=== PATIENT | male | born 1935 | race Caucasian/White ===

== ENCOUNTER 2016-04-18 23:21 | Observation (INO) | payer OTHER, MEDICARE ==
[2016-04-18] MEDS ORDERED: NS 500 ML IV ONE (23:24)
[2016-04-18 23:47] LABS: % IMMATURE GRANULYOCYTES 0.4 % (0.0-1.1); ABSOLUTE IMMATURE GRANULOCYTES 0.02 10^3/uL (0.00-0.10); ADD DIFF? NO; ADD MORPH? NO; ADD SCAN? NO; ATYPICAL LYMPHOCYTE FLAG 20 (0-99); FRAGMENT RBC FLAG 0 (0-99); HEMATOCRIT 43.7 % (40.0-51.0); HEMOGLOBIN 15.1 g/dL (13.7-17.5); LEFT SHIFT FLG 10 (0-99); LIPEMIA HEMOLYSIS FLAG 90 (0-99); MEAN CELL HEMOGLOBIN 32.5 pg (27.9-34.1); MEAN CELL HEMOGLOBIN CONCENTR. 34.6 g/dL (32.4-36.7); MEAN PLATELET VOLUME 10.7 fL (8.7-11.7); PLATELET CLUMPS FLAG 0 (0-99); PLATELET COUNT 171 10^3/uL (150-400); RED BLOOD CELL COUNT 4.65 10^6/uL (4.40-6.38); RED CELL DISTRIBUTION WIDTH 13.8 % (11.5-15.2)
--- NOTE | 2016-04-18 23:48 | DX ---
Portable Chest History: Chest pain in a 80-year-old male; comparison prior study October 16, 2013.. Findings: The heart size and pulmonary vascularity are normal allowing for portable technique. Aortic tortuosity is seen unchanged.. Pulmonary vascularity is normal. The lungs are clear. There is no ple ural fluid. A pneumothorax is not identified. Impression: Chest negative for acute abnormality.
--- NOTE | 2016-04-18 23:56 | CPEKG ---
Heart Rate: 72 RR Interval: 833 P-R Interval: 168 QRSD Interval: 98 QT Interval: 384 QTC Interval: 421 P [place]: 41 QRS [place]: 8 T Wave [place]: 33 EKG Severity - NORMAL ECG - EKG Impression: SINUS RHYTHM Electronically Signed By: Stefan Marin 19-Apr-2016 01:03:41
[2016-04-19 00:19] LABS: ANION GAP 12 mEq/L (8-16); CALCIUM 8.8 mg/dL (8.5-10.4); CARBON DIOXIDE 25 mEq/l (22-31); CHLORIDE 99 mEq/L (97-110); CREATININE 0.9 mg/dL (0.7-1.3); GLOMERULAR FILTRATION RATE > 60; GLUCOSE 165 mg/dL (70-100); POTASSIUM 4.1 mEq/L (3.5-5.2); SODIUM 136 mEq/L (134-144)
[2016-04-19 00:27] LABS: TROPONIN I < 0.012 ng/mL (0-0.034)
--- NOTE | 2016-04-19 00:36 | EDPHY ---
H & P Time Seen by Provider: 04/18/16 23:25 HPI/ROS: HPI Fainted x3 today. 80-year-old male by ambulance from home. Patient has a history of vasovagal syncope syndrome. He wears a implanted cardiac cath lab manager. He is currently being managed by Dr. Ward. He has not had an episode of syncope in a year. He was recently put on lisinopril for hypertension by his primary care physician 2- 4 weeks ago. He has been on fludrocortisone for his vasovagal syncope. He denies any associated chest pain, shortness of breath, headache, loss of sensation or weakness in his extremities. No palpitations. He had an episode at 10:00 a.m. after he was brushing his teeth while sitting on the bath tub and then standing up. He then had another episode at about 3:00 p.m. when he got up after sitting for a period of time near his living room he did not fully lose consciousness at that time. And the 3rd episode was at about 10:00 p.m. while straining to have a bowel movement. His called the office of [facility]. They apparently recorded a brief episode of bradycardia from the mid afternoon event at 3:00 p.m.. ROS: Constitutional: No fever, no chills. As above per Eyes: No discharge. No changes in vision. ENT: No sore throat. No nasal congestion or rhinorrhea. Respiratory: No cough. No shortness of breath. Cardiac: No chest pain, no palpitations. Gastrointestinal: No abdominal pain, no vomiting, no diarrhea. Genitourinary: No hematuria. No dysuria or increased frequency with urination. Musculoskeletal: No back pain. No neck pain. No myalgias or arthralgias. Skin: No rashes. Neurological: No headache. No focal weakness or altered sensation. Past medical history: Hypothyroidism, hypertension, hyperlipidemia, right wrist surgery, tonsillectomy. Social history: Here with family. Nonsmoker. Denies alcohol. Physical Exam: General Appearance: Alert, no distress. This patient is responding to questions appropriately and in full sentences. This patient appears well- hydrated and well-nourished. Eyes: Pupils equal and round no pallor or injection. No lid edema, erythema or injection. Respiratory: There are no retractions, lungs are clear to auscultation with good air movement bilaterally. Implantable cardiac rhythm monitor left upper chest wall. Cardiovascular: Regular rate and rhythm. No murmur. Gastrointestinal: Abdomen is soft and nontender, no masses, bowel sounds normal. No focal tenderness at McBurney's point. No Guzmán sign. Neurological: Motor sensory function is grossly intact. Cranial nerves are normal. Cerebellar function is normal. Skin: Warm and dry, no rashes. Musculoskeletal: Neck is supple and nontender. Extremities are symmetrical. All joints range without pain or impingement. Psychiatric: No agitation. No depression. Database: EKG: EKG time is 11:54 p.m.; EKG shows a narrow complex normal sinus rhythm with a ventricular rate of 72. The SD, QRS, QT intervals are within normal limits. There are no ST-T wave changes indicative of ischemic or injury pattern. No evidence of right heart strain. No evidence of Brugada syndrome, WPW, hypertrophic cardiomyopathy. Interpreted by me. Imaging: Chest x-ray AP portal; the cardiac mediastinal silhouette is unremarkable. No evidence of infiltrate or pneumothorax. No acute cardiopulmonary disease process noted. Interpreted by me. Procedures: Emergency department course: IV placed. He was placed on a cardiac cath lab manager. EKG performed. He was started on IV normal saline with 500 cc to be given over the next hour. 12:45 a.m., patient re-evaluated. Resting comfortably at this time. Vital signs reviewed and are normal except for moderate hypertension. Results of diagnostic test discussed with him and family. Plan for admission reviewed. All of their questions were answered. 12:50 a.m., spoke with on-call hospitalist Dr. Mccauley. Case discussed in detail. Patient accepted for admission to the hospitalist service. Patient admitted in stable condition to the hospitalist service. Differential Diagnosis: The differential diagnosis on this patient includes but is not limited to vasovagal syncope, bradycardia,,. This represents a partial list of diagnoses considered. These considerations are based on history, physical exam, past history, reassessment and diagnostic testing. Smoking Status: Former smoker Constitutional: Initial Vital Signs Temperature (C) 36.8 C 04/19/16 00:21 Heart Rate 75 04/19/16 00:21 Respiratory Rate 16 04/19/16 00:21 Blood Pressure 163/90 H 04/19/16 00:21 O2 Sat (%) 95 04/19/16 00:21 O2 Delivery Mode Room Air Allergies/Adverse Reactions: No Known Allergies Allergy (Verified 04/19/16 00:10) Home Medications: Medication Instructions Recorded Aspirin [Aspirin 81mg (*)] 81 mg PO HS 10/15/13 Levothyroxine [Synthroid 75 mcg 75 mcg PO DAILY06 10/15/13 (*)] Lovastatin 20 mg PO DAILY18 10/15/13 Multivitamins [Multivitamin (*)] 1 each PO DAILY 10/16/13 Fludrocortisone Acetate [Florinef 0.1 mg PO DAILY@10 04/19/16 0.1 MG (RX)] Lisinopril/Hctz 10/12.5 mg 1 ea PO DAILY06 04/19/16 [Zestoretic/Prinzide 10/12.5MG (*)] Medical Decision Making - Data Points Laboratory Results: Laboratory Results 04/18/16 23:30 04/18/16 23:30 04/18/16 23:30 TSH 3.390 uIU/mL (0.465-4.680) Medications Given: Discontinued Medications Sodium Chloride (Ns) 500 mls @ 0 mls/hr IV ONCE ONE PRN Reason: As Directed Stop: 04/18/16 23:25 Last Admin: 04/18/16 23:30 Dose: 500 mls Departure - Departure Disposition: [facility] Inpatient Acute Clinical Impression: Syncope
[2016-04-19] MEDS ORDERED: ONDANSETRON DISINTEGRATING 4 MG TAB PO PRN (01:38)
[2016-04-19] MEDS ORDERED: ONDANSETRON 4 MG/2 ML VIAL IVP PRN (01:38)
[2016-04-19] MEDS: NS 1,000 ML IV SCH ×2 (02:43→16:15)
--- NOTE | 2016-04-19 02:45 | GHP ---
[f rep st] HISTORY AND PHYSICAL DATE OF ADMISSION: 04/19/2016 CHIEF COMPLAINT: Syncope. HISTORY OF PRESENT ILLNESS: This is a 80-year-old male with a history of vasovagal syncope syndrome. He has had many episodes of vasovagal syncope. He did have an EP procedure last year to rule out S VT and that did not seem to be the issue. He actually has not had a syncopal episode since the night after that procedure. He and his have had a respiratory type illness the last couple days. To day, he had a fever up to 101. He has been coughing a significant amount without any sputum producti on. This morning, he did not look good in the bathroom and had a syncopal episode at that time. He had a syncopal episode in the bathroom after brushing his teeth. He had 2 more syncopal episodes, th e last 1 with having a bowel movement. He does remain weak after these episodes. They do not last v maximilian long. He denies any chest pain. No palpitations. He does admit to fever. He has had a dry cou gh with no sputum. No sore throat. Apparently, he does have a Linq and 1 of the rhythms was transmi tted to [facility] and there appeared to be a brief episode of bradycardia at that time. The matias ent was recently started on lisinopril for hypertension a few weeks ago. REVIEW OF SYSTEMS: A 10-point review of systems was obtained and negative. PAST MEDICAL HISTORY: 1. Vasovagal syndrome as above. 2. Hypothyroidism. 3. Hypertension. 4. Hyperlipidemia. 5. Right wrist surgery. 6. Tonsillectomy. SOCIAL HISTORY: No smoking or alcohol. FAMILY HISTORY: No family history of similar complaints. PHYSICAL EXAM: VITAL SIGNS: Afebrile, blood pressure is 163/90, heart rate 75, oxygen saturation 95 % on room air. He does not have any orthostasis. GENERAL: Patient is in no apparent distress. ZAC NT: Nonicteric sclerae. Extraocular movements intact. Moist mucous membranes. NECK: Supple. No thyromegaly. LUNGS: Good effort. Clear to auscultation bilaterally. CARDIOVASCULAR: Regular rate and rhythm. No murmurs, gallops. ABDOMEN: Positive bowel sounds. Soft, nontender, nondistended. No hepatosplenomegaly. EXTREMITIES: No clubbing, cyanosis, or edema. SKIN: Without rash. Dry, i ntact. NEUROLOGIC: Alert and oriented x3. Moving all 4 extremities equally. PSYCH: Normal mood a nd affect. LABS: CBC is normal. Chemistry is also normal. Blood sugar is a little bit elevated at 165. EKG p ersonally reviewed and interpreted shows normal sinus rhythm with no ischemic changes. Chest x-ray personally reviewed and interpreted, shows no pneumonia. ASSESSMENT: This is a 80-year-old male with a history of vasovagal syncope, presenting with several episodes of syncope most consistent with vasovagal. PLAN: 1. Vasovagal syncope. We will continue to monitor overnight. Will have Cardiology see the patient as they have been managing this. I do wonder if a pacemaker might be able to help with these episode s, although he only seems to only get them on a yearly basis. 2. Fever. This is most likely due to a viral syndrome. Will check flu swab. I am going to hold of f on any antibiotics. 3. History of hypertension with a recent addition of lisinopril. This may be contributing as he is also on Florinef to raise his blood pressure. We will hold his medication. /[id number]/MODL
[2016-04-19] MEDS: ACETAMINOPHEN 325 MG TAB PO PRN ×2 (08:23→17:46)
[2016-04-19] MEDS: OSELTAMIVIR PHOSPHATE 75 MG CAP PO SCH ×2 (09:14→17:21)
--- NOTE | 2016-04-19 12:49 | HOSPPROG ---
Hospitalist Progress Note Assessment/Plan: # acute influenza A- febrile on admission - starting Tamiflu # acute episodes of syncope- known diagnosis of vasovagal syncope- started on Florinef by Dr. Pr[facility] just recently started on blood pressure medication by his PCP - cardiology to leave recommendations related to syncope and above medications - continue fluid resuscitation - continue telemetry monitoring Objective: Vital Signs Temp Pulse Resp BP Pulse Ox 36.9 C 66 20 149/86 H 91 L 04/19/16 11:24 04/19/16 11:24 04/19/16 11:24 04/19/16 11:24 04/19/16 11:24 04/18/16 04/19/16 04/20/16 05:59 05:59 05:59 Intake Total 1200 240 Balance 1200 240 ICD10 Worksheet Patient Problems: Problems Problem Status Diagnosed Syncope Acute Fever Acute
--- NOTE | 2016-04-19 13:32 | GCON ---
[f rep st] CONSULTATION REFERRING PHYSICIAN: Zach Mccauley MD HISTORY OF PRESENT ILLNESS: This a 80-year-old patient with past medical history of vasovagal syncope, who was diagnosed a few months back with hypertension and was placed on lisinopril. He comes in for evaluation of syncope. The patient mentions that starting Saturday he has been having a significant amount of cough and fever, and has had decreased appetite. He has been lying in bed all day and all night long and has not been eating and drinking well. At 10 o'clock in the morning, he decided to get up out of bed and brush his teeth. He got out of bed, walked over to the bathroom, and was sitting brushing his teeth when his saw him, and he was "not looking good at all." After that, the patient stood up from that position and passed out. As soon as he passed out, his ran out and pressed the button to the LINQ monitor, forcing it to make a recording. He lay on the ground for quite a few minutes, and was not making contact or making much coherent conversation. After this, the patient had another episode at 3 p.m., and 1 more episode at night, then he passed out again. At that point in time, his pressed the LINQ monitor button again. All through the day, he had not been eating and drinking well, and had been lying in bed. I have interrogated/evaluated each of these episodes when she pressed the button, and the minimal heart rate it went to was 45 beats a minute, which was with an episode at 11 a.m. in the morning. With the evening episode at 11 p.m., he did not have any drop in the heart rate below 55 beats per minute. In the past, we have evaluated the patient extensively for his syncopal episode , and we made the diagnosis of vasovagal syncope, and he was given Florinef. He had LINQ monitor for about a year and no episodes of symptomatic or asymptomatic bradyarrhythmia have been noted in the past. REVIEW OF SYSTEMS: Other than above, are negative. PAST MEDICAL HISTORY: 1. Vasovagal syncope, on Florinef. Each of the episodes have occurred under some unusual circumstances or positional change. 2. Hypothyroidism. 3. Hypertension. 4. Hyperlipidemia. 5. Right wrist surgery. 6. Tonsillectomy. SOCIAL HISTORY: Nonsmoker, no alcohol use. FAMILY HISTORY: No family history of sudden cardiac . PHYSICAL EXAMINATION: VITAL SIGNS: Blood pressure at the time of admission 163 /90, and during my exam 149/86, pulse of 107, respiratory rate 16. GENERAL: Patient is coughing occasionally. The patient appears to be in no apparent distress. HEENT: Anicteric sclerae. Extraocular movements intact. Mucous membranes are moist. NECK: Supple. No thyromegaly. LUNGS: Good effort, bilaterally equal strength. No rales, rhonchi or rub. CARDIAC: S1, S2 regular. No S3, no murmurs. ABDOMEN: Soft, nontender. No guarding or rigidity. Bowel sounds present. EXTREMITIES: No edema, no clubbing, no cyanosis. SKIN: Without rash. Dry and intact. NEUROLOGIC: Intact. PSYCH: Normal mood and affect. LABORATORY DATA: CBC is normal. Chem-7 is normal. He is positive for influenza A. IMPRESSION AND PLAN: 1. This is a 80-year-old patient with vasovagal syncope, who has 2 episodes recorded on LINQ monitor with syncope. One of them shows no evidence of bradycardia, and the other shows bradycardia up to 45 beats per minute. I have discussed the situation extensively with the patient and his , and have mentioned that the pacemaker may improve the chances of him not having syncope by 10% to 20%. However, most of this appears to be related to a drop in the blood pressure, when there is a combination of dehydration, positional change, with history of vasovagal syncope. Based on the literature on vasovagal syncope , pacemaker will not help; however, if these episodes continue to occur without him having fever or dehydration, then it may be worth putting in a pacemaker. However, this may be a long-term solution rather than something needed during this admission. At the current point in time, considering his hypertension, we will stop the Florinef. 2. Fever. This is likely due to H. influenzae. 3. Hypertension. This probably needs to be aggressively treated. 4. Continue to hydrate the patient since he still continues to have poor appetite. Thank you for letting us participate in the patient's care. Feel free to call us for questions. /[id number]/MODL MTDD
[2016-04-19] MEDS ORDERED: NON-FORMULARY NEW DRUG (Lovastatin [Lovastatin] 20 MG) PO SCH (18:00)
[2016-04-19] MEDS ORDERED: PRAVASTATIN SODIUM 20 MG TAB PO SCH (18:00)
[2016-04-19] MEDS ORDERED: ASPIRIN 81 MG CHEWABLE TAB PO SCH (21:00)
[2016-04-20 04:41] VITALS: PULSE 68
[2016-04-20 05:15] LABS: HEMATOCRIT 39.3 % (40.0-51.0); HEMOGLOBIN 13.7 g/dL (13.7-17.5); MEAN CELL HEMOGLOBIN 32.7 pg (27.9-34.1); MEAN CELL HEMOGLOBIN CONCENTR. 34.9 g/dL (32.4-36.7); MEAN CELL VOLUME 93.8 fL (81.5-99.8); RED BLOOD CELL COUNT 4.19 10^6/uL (4.40-6.38); RED CELL DISTRIBUTION WIDTH 13.7 % (11.5-15.2)
[2016-04-20 05:45] LABS: ANION GAP 6 mEq/L (8-16); CALCIUM 7.8 mg/dL (8.5-10.4); CARBON DIOXIDE 24 mEq/l (22-31); CHLORIDE 108 mEq/L (97-110); CREATININE 0.8 mg/dL (0.7-1.3); GLOMERULAR FILTRATION RATE > 60; GLUCOSE 93 mg/dL (70-100); POTASSIUM 3.5 mEq/L (3.5-5.2); SODIUM 138 mEq/L (134-144)
[2016-04-20] MEDS ORDERED: LEVOTHYROXINE 75 MCG TAB PO SCH (06:00)
[2016-04-20 08:58] VITALS: BP 125/73; RESP 19; TEMP 98; O2SAT 94
[2016-04-20] MEDS ORDERED: MULTIVITAMINS 1 EACH TAB PO SCH (09:00)
[2016-04-20] MEDS: OSELTAMIVIR PHOSPHATE 75 MG CAP PO SCH (09:21)
--- NOTE | 2016-04-20 22:23 | GDS ---
[f rep st] DISCHARGE SUMMARY DISCHARGE DIAGNOSES: Include: 1. Acute influenza A. 2. Acute syncope thought secondary to fever and dehydration. 3. Chronic known vasovagal syncope. 4. Hypothyroidism. 5. Recent diagnosis of hypertension. 6. Hyperlipidemia. HISTORY OF PRESENT ILLNESS: A 80-year-old male with a history of well-documented vasovagal syncope, treated with Florinef by Cardiology in the outpatient setting, who presents with multiple episodes of syncope. For details of patient's initial presentation, please see the History and Physical dated 0 04/19/2016. CONSULTATIVE SERVICES: Cardiology, Dr. Rader. PROCEDURES: None. HOSPITAL COURSE: By issue: 1. Acute syncope. The patient had his recorder reviewed by Dr. Rader, his order desk caller, who felt the re was 1 episode where there was significant bradycardia, another episode where there were no dysrhyt hmias or heart rate abnormalities. The greatest assumption is that the patient's syncope was more re lated to fever and dehydration with his acute influenza A diagnosis. The patient is being taken off his Florinef, as his blood pressures have not run low during this hospital stay. He is to follow in the outpatient setting with Dr. Rader, as well as his primary care provider. 2. Acute influenza A. Patient had had symptoms for only a day or so prior to presentation. He was initiated on Tamiflu, provided IV fluid resuscitation and supportive care, [facility] 10-[facility] course of Tamiflu in the outpatient setting. 3. Hypertension. Per the patient's report, this is a new diagnosis since the initiation of Florinef . Previous, patient had quite low blood pressures. He was initiated on blood pressure medication by his outpatient PCP at his physical 02/2016. It was our determination that the patient actually off Florinef will likely not have elevations in his blood pressure. We are discontinuing both the Maud ef per Cardiology for his vasovagal syncope, as well as his outpatient antihypertensive. We have ask ed that he check his blood pressures in the outpatient setting and present to his primary care next w [place] for further discussions about his blood pressure and need for ongoing antihypertensive treatment, which we suspect is low. MEDICATIONS: At the time of disposition, please reference medication reconciliation printed on 04/20. FOLLOWUP APPOINTMENTS: Include with his PCP next week for a blood pressure check. PENDING STUDIES: At the time of this dictation are none. I spent greater than 30 minutes on the planning and coordination of this discharge. /[id number]/MODL
== END 2016-04-20 13:10 | disposition home or self-care (01) ==
LOC: EDUNIT# → F2W 04-19 01:59
PROVIDERS: ADMIT Internal Medicine; ATTEND Hospitalist
DX: J11.1 Influenza due to unidentified influenza virus with other respiratory manifestations (principal); R55 Syncope and collapse; I10 Essential (primary) hypertension; E03.9 Hypothyroidism, unspecified; E78.5 Hyperlipidemia, unspecified
CPT/HCPCS: 71010; 93005; 96360; 99285; G0378

== ENCOUNTER → 2016-05-11 | Outpatient (CLI) | payer OTHER, MEDICARE | LOC: BHFA 15:30 | PROVIDERS: ATTEND Internal Medicine Cardiovascular Disease | DX: I47.1 Supraventricular tachycardia (principal) ==

== ENCOUNTER → 2016-08-10 | Outpatient (CLI) | payer OTHER, MEDICARE | LOC: BHFA 11:00 | PROVIDERS: ATTEND Internal Medicine Cardiovascular Disease | DX: I47.1 Supraventricular tachycardia (principal) ==

== ENCOUNTER → 2016-09-21 | Outpatient (CLI) | payer OTHER, MEDICARE | LOC: BHFA 11:30 | PROVIDERS: ATTEND Internal Medicine Cardiovascular Disease | DX: I47.1 Supraventricular tachycardia (principal) ==

== ENCOUNTER 2016-10-16 12:14 | Observation (INO) | payer OTHER, MEDICARE ==
[2016-10-16] MEDS ORDERED: NS 1,000 ML IV ONE ×2 (12:24→16:38)
--- NOTE | 2016-10-16 12:36 | EDPHY ---
H & P Time Seen by Provider: 10/16/16 12:34 HPI/ROS: CHIEF COMPLAINT: Syncope HISTORY OF PRESENT ILLNESS: Patient is recurrent history of syncope and actually has an implanted monitor from [employer]. He arrives by EMS after having an episode of passing out on the toilet. According to the patient and confirmed by his his some lower abdominal discomfort and went to the bathroom and proceeded to have syncope on the toilet. Afterwards he had multiple episodes of vomiting and some loose stool and was brought in by paramedics. Currently says he feels much better and back to normal. This is almost identical to his previous episodes of syncope. REVIEW OF SYSTEMS: Eye: no change in vision ENT: no sore throat Cardiac: Denies chest pain Pulmonary: no cough or SOB Abdomen: No abdominal pain now. Musculoskeletal: no back pain or neck pain or extremity injury. Skin: no rash, no laceration or abrasion from the fall Neuro: no headache Constitutional: no fever : no urinary symptoms A comprehensive 10 point review of systems is otherwise negative aside from elements mentioned in the history of present illness. PAST MEDICAL HISTORY: Tonsillectomy, right wrist surgery, thyroid, elevated cholesterol, syncope as in HPI. Social history: Here with his and family General Appearance: Alert and conversant, cooperative. Eyes: No scleral icterus. Extraocular motion intact. ENT, Mouth: Normal mucous membranes. No tongue laceration or abrasion. No external evidence of head trauma. Respiratory: Normal respiratory effort, breath sounds equal, lungs are clear to auscultation. Cardiovascular: Regular rate and rhythm. No murmur. Gastrointestinal: Abdomen is soft and non tender. Neurological: Alert and oriented x3. Normally conversant. Face symmetric, normal movement and sensation in all extremities. Not tremulous, ambulatory to the bathroom. Skin: Warm and dry, no rashes. Musculoskeletal: No cervical spinal tenderness, no calf tenderness. Psychiatric: Not agitated. Emergency Department course/MDM: Patient received 1 L normal saline. It sounds like his same recurrent syncope. The nausea and vomiting and diarrhea definitely happened after the syncope. Patient was able to ambulate in the emergency department and felt well at 1400. He is back to normal. Discussed with Alex at 1437; will send someone over to interrogate his link monitor. Discussed with patient at this time. 1550: On Linq a monitor interrogation the patient had a 17 second pause during his syncope. Admission to hospitalist with cardiology consultation for probable pacemaker placement, discussed with patient at this time. External pacer pads placed on the patient at this time. Smoking Status: Former smoker Constitutional: Initial Vital Signs Temperature (C) 36.7 C 10/16/16 12:19 Heart Rate 69 10/16/16 12:19 Respiratory Rate 18 10/16/16 12:19 Blood Pressure 152/84 H 10/16/16 12:19 O2 Sat (%) 96 10/16/16 12:19 O2 Delivery Mode Room Air Allergies/Adverse Reactions: No Known Allergies Allergy (Verified 04/19/16 00:10) Home Medications: Medication Instructions Recorded Aspirin [Aspirin 81mg (*)] 81 mg PO HS 10/15/13 Levothyroxine [Synthroid 75 mcg 75 mcg PO DAILY06 10/15/13 (*)] Lovastatin 20 mg PO DAILY18 10/15/13 Multivitamins [Multivitamin (*)] 1 each PO DAILY 10/16/13 Oseltamivir Phosphate [Tamiflu 75 75 mg PO BIDMEAL #8 cap 04/20/16 mg (*)] Medical Decision Making - Diagnostics EKG Interpretation: 12-lead EKG interpreted by me; official reading is in trace master. My interpretation is normal sinus rhythm rate 76, normal intervals. Differential Diagnosis: Differential diagnosis considered for syncope including but not limited to vasovagal syncope, arrhythmia, dehydration, and blood loss. Consult/Admit Bed Type: [place] [id number], [place] [id number] - Data Points Laboratory Results: Laboratory Results 10/16/16 12:21 10/16/16 12:21 10/16/16 10/16/16 12:21 12:21 WBC 9.01 10^3/uL 10^3/uL (3.80-9.50) RBC 4.81 10^6/uL 10^6/uL (4.40-6.38) Hgb 15.6 g/dL g/dL (13.7-17.5) Hct 45.8 % % (40.0-51.0) MCV 95.2 fL fL (81.5-99.8) MCH 32.4 pg pg (27.9-34.1) MCHC 34.1 g/dL g/dL (32.4-36.7) RDW 13.6 % % (11.5-15.2) Plt Count 237 10^3/uL 10^3/uL (150-400) MPV 10.9 fL fL (8.7-11.7) Neut % (Auto) 48.8 % % (39.3-74.2) Lymph % (Auto) 40.0 % % (15.0-45.0) [place] % (Auto) 6.9 % % (4.5-13.0) Eos % (Auto) 2.9 % % (0.6-7.6) Baso % (Auto) 0.6 % % (0.3-1.7) Nucleat RBC Rel Count 0.0 % % (0.0-0.2) Absolute Neuts (auto) 4.41 10^3/uL 10^3/uL (1.70-6.50) Absolute Lymphs (auto) 3.60 10^3/uL H 10^3/uL (1.00-3.00) Absolute Monos (auto) 0.62 10^3/uL 10^3/uL (0.30-0.80) Absolute Eos (auto) 0.26 10^3/uL 10^3/uL (0.03-0.40) Absolute Basos (auto) 0.05 10^3/uL 10^3/uL (0.02-0.10) Absolute Nucleated RBC 0.00 10^3/uL 10^3/uL (0-0.01) Immature Gran % 0.8 % % (0.0-1.1) Immature Gran # 0.07 10^3/uL 10^3/uL (0.00-0.10) Sodium 140 mEq/L mEq/L (134-144) Potassium 4.5 mEq/L mEq/L (3.5-5.2) Chloride 110 mEq/L mEq/L (97-110) Carbon Dioxide 15 mEq/l L mEq/l (22-31) Anion Gap 15 mEq/L mEq/L (8-16) BUN 24 mg/dL H mg/dL (7-23) Creatinine 1.0 mg/dL mg/dL (0.7-1.3) Estimated GFR > 60 Glucose 131 mg/dL H mg/dL (70-100) Calcium 9.7 mg/dL mg/dL (8.5-10.4) Troponin I < 0.012 ng/mL ng/mL (0-0.034) Medications Given: Discontinued Medications Sodium Chloride (Ns) 1,000 mls @ 0 mls/hr IV EDNOW ONE; Wide Open PRN Reason: Protocol Stop: 10/16/16 12:25 Last Admin: 10/16/16 12:30 Dose: 1,000 mls Departure - Departure Disposition: [facility] Acute Clinical Impression: Syncope Qualifiers: Syncope type: unspecified Qualified Code(s): R55 - Syncope and collapse Condition: Good Instructions: Syncope (ED) Referrals: Juanpablo Rader MD [Medical Doctor] - As per Instructions
--- NOTE | 2016-10-16 12:52 | CPEKG ---
Heart Rate: 76 RR Interval: 789 P-R Interval: 176 QRSD Interval: 100 QT Interval: 400 QTC Interval: 450 P [place]: 53 QRS [place]: 24 T Wave [place]: 38 EKG Severity - NORMAL ECG - EKG Impression: SINUS RHYTHM Electronically Signed By: Jose Recinos 16-Oct-2016 13:58:14
[2016-10-16 13:00] LABS: % IMMATURE GRANULYOCYTES 0.8 % (0.0-1.1); ABSOLUTE IMMATURE GRANULOCYTES 0.07 10^3/uL (0.00-0.10); ADD DIFF? NO; ADD MORPH? NO; ADD SCAN? NO; ATYPICAL LYMPHOCYTE FLAG 10 (0-99); FRAGMENT RBC FLAG 0 (0-99); HEMATOCRIT 45.8 % (40.0-51.0); HEMOGLOBIN 15.6 g/dL (13.7-17.5); LEFT SHIFT FLG 0 (0-99); LIPEMIA HEMOLYSIS FLAG 90 (0-99); MEAN CELL HEMOGLOBIN 32.4 pg (27.9-34.1); MEAN CELL HEMOGLOBIN CONCENTR. 34.1 g/dL (32.4-36.7); MEAN CELL VOLUME 95.2 fL (81.5-99.8); MEAN PLATELET VOLUME 10.9 fL (8.7-11.7); PLATELET CLUMPS FLAG 20 (0-99); PLATELET COUNT 237 10^3/uL (150-400); RED BLOOD CELL COUNT 4.81 10^6/uL (4.40-6.38); RED CELL DISTRIBUTION WIDTH 13.6 % (11.5-15.2)
[2016-10-16 13:02] LABS: ANION GAP 15 mEq/L (8-16); CALCIUM 9.7 mg/dL (8.5-10.4); CARBON DIOXIDE 15 mEq/l (22-31); CHLORIDE 110 mEq/L (97-110); GLOMERULAR FILTRATION RATE > 60; GLUCOSE 131 mg/dL (70-100); POTASSIUM 4.5 mEq/L (3.5-5.2); SODIUM 140 mEq/L (134-144)
[2016-10-16 13:14] LABS: TROPONIN I < 0.012 ng/mL (0-0.034)
[2016-10-16] MEDS ORDERED: BACITRACIN IRRIGATION/NS 50,000 UNITS/1,000 ML BTL IRR ONE (16:38)
[2016-10-16] MEDS ORDERED: DIAZEPAM 5 MG TAB PO ONE (16:38)
[2016-10-16] MEDS ORDERED: diphenhydrAMINE 25 MG CAP PO ONE (16:38)
[2016-10-16] MEDS ORDERED: ceFAZolin 2 GM/DEXTROSE 100 ML IV ONE (16:38)
[2016-10-16] MEDS ORDERED: LIDOCAINE 1% 300 MG/30 ML SDV ONE (16:39)
[2016-10-16] MEDS ORDERED: IOPAMIDOL (ISOVUE-300) 100 ML BTL ONE (16:40)
[2016-10-16] MEDS ORDERED: fentaNYL 100 MCG/2 ML INJ ONE ×2 (16:40→17:50)
[2016-10-16] MEDS ORDERED: MIDAZOLAM 2 MG/2 ML VIAL ONE ×2 (16:40→17:46)
[2016-10-16] MEDS ORDERED: BUPIVACAINE 0.5% 30 ML SDV ONE (16:40)
[2016-10-16 17:48] LABS: INR 0.98 (0.83-1.16); PROTIME(PATIENT) 12.9 SEC (12.0-15.0)
[2016-10-16] MEDS ORDERED: NON-FORMULARY NEW DRUG (Lovastatin [Lovastatin] 20 MG) PO SCH (18:00)
[2016-10-16] MEDS ORDERED: HYDROCODONE/APAP 5/325 TAB PO PRN (18:31)
--- NOTE | 2016-10-16 18:35 | CPEKG ---
Heart Rate: 89 RR Interval: 674 P-R Interval: 176 QRSD Interval: 90 QT Interval: 364 QTC Interval: 443 P [place]: 31 QRS [place]: 11 T Wave [place]: 11 EKG Severity - NORMAL ECG - EKG Impression: SINUS RHYTHM Electronically Signed By: Jad Pineda 16-Oct-2016 18:51:24
--- NOTE | 2016-10-16 18:50 | EPPROC ---
Electrophysiology Procedure Note: PROCEDURE PERFORMED: 1. Implantation of an A/V Pacemaker 2. Subclavian vein angiography 3. Fluoroscopy INDICATION: Syncope 17 second pause seen on LINQ monitor PROCEDURE NOTE: Patient presented to the cardiac catheterization laboratory in a fasting, post absorptive state . EP RN administered sedation. The left infraclavicular area was prepped and draped in the usual sterile fashion. Lidocaine plus bupivacaine was used for local anesthesia. Left subclavian venography was performed by injection of iodinated contrast into the left antecubital vein. This was done to assure patency of the vein and also to assess for any anatomical aberrations. Using a combination of blunt and sharp dissection and electrocautery, the dissection was carried down to the prepectoral fascia. A pocket was made in this anatomical plane. All bleeding was controlled with electrocautery. The pocket was packed with gauze soaked in antibiotic solution. Fluoroscopy was utilized during the entire procedure for venous access and placement of the leads. Using a direct stick technique the left extrathoracic axillary vein was accessed with 2 sticks using the modified Seldinger technique. Placement of the guidewires into the venous system was confirmed by low-pressure blood return and also by visualizing the guidewires advancing into the inferior vena cava. A purse string suture was applied around the guidewires. Two #7 Maltese sheaths were advanced under fluoroscopic guidance over the guidewire. An active fixation ventricular lead was advanced into the right ventricular apex and screwed in place. An active fixation atrial lead was advanced into the right atrial appendage and screwed in place. The peel away sheaths were removed. Pacing thresholds, sensing parameters and lead impedances were measured. There was no diaphragmatic stimulation at maximum output. The leads were sutured to the prepectoral fascia with 3 nonabsorbable sutures each. The pocket was again inspected for any bleeding. The leads were attached to the pacemaker securely. The pacemaker was inserted into the pocket and secured in place with a nonabsorbable suture. Fluoroscopy was performed in VELIZ and NITO planes to verify right-sided placement of the leads. Also fluoroscopy of the pacemaker pocket was performed. The pacemaker pocket was closed in 3 layers with absorbable monocryl sutures and armen. Appropriate dressing was applied. The patient left the cardiac catheterization laboratory in stable condition. LINQ monitor was also removed during the procedure. Serial Numbers: 1. Device: SJM Assurity MRI 2272 SN [id number] 2. Atrial Lead: SJM Tendril STS 2088TC 46cm SN [id number] 3. Ventricular Lead: SJM Tendril STS 2088TC 52cm SN [id number] Stimulation Thresholds & Impedance Measurements: 1. Atrial Lead P 2.1 mV 1 V 0.5 ms 565 ohm 2. Ventricular Lead R 6.4 mV 0.3 V 0.5 ms 694 ohm Chris Pacing Parameters 1. Pacing mode: DDDR 2. Lower rate: 60ppm 3. Upper tracking rate: 130 ppm 4. Upper sensor rate: 130 ppm Patient Problems: Problems Problem Status Onset Syncope Acute Fever Acute Syncope Acute
[2016-10-16 19:52] VITALS: RESP 18
[2016-10-16] MEDS ORDERED: ASPIRIN 81 MG CHEWABLE TAB PO SCH (21:00)
--- NOTE | 2016-10-16 22:08 | GHP ---
[f rep st] HISTORY AND PHYSICAL DATE OF ADMISSION: 10/16/2016 CHIEF COMPLAINT: Syncope. HISTORY: Mr. Garibay is a 81-year-old male, who has a history of recurrent vasovagal syncope. He has had a Linq monitor for quite some time. He had a recurrent syncopal event today. He was sitting o n the toilet. His prodrome is usually a funny feeling in his lower intestines, which he had, and th en had a jack syncopal event, and EMS was called. After passing out, he vomited and lost continenc e of stool. He has since stabilized and was ready to go home from the ER, when interrogation of his Linq monitor revealed a 17-second pause. Cardiology was subsequently consulted, and he went urgent ly to get a pacemaker with Dr. Pineda, which is now complete, and he is feeling well. PAST MEDICAL HISTORY: 1. Hyperlipidemia. 2. Hypothyroidism. MEDICATIONS: Please see computer record for full detailed list. ALLERGIES: No known drug allergies. SOCIAL HISTORY: Quit smoking 50 years ago. No alcohol for 30 years. He lives with his . REVIEW OF SYSTEMS: Complete review of systems obtained. Review of systems is negative regarding co nstitutional, HEENT, GI, pulmonary, cardiovascular, , hematologic, skin, musculoskeletal, endocrin e, and psych, except for positives as noted in HPI. FAMILY HISTORY: Reviewed, noncontributory to current complaint. PHYSICAL EXAMINATION: GENERAL: Well-developed, well-nourished male, in no distress. VITAL SIGNS: Temperature is 36.7, pulse 69, blood pressure 152/84, satting 96% on room air. EYES: Normal conju nctivae. Pupils equal, round, react to light. ENT: Normal ears and nose. Hearing intact. Normal teeth. Oropharynx moist. NECK: Trachea midline. No thyromegaly. CHEST: Normal respiratory eff ort. Lungs clear to auscultation bilaterally. CARDIOVASCULAR: Regular rhythm. No murmur. No low er extremity edema. ABDOMEN: Soft, nontender. No hepatosplenomegaly. SKIN: Warm, dry, intact. No rash. MUSCULOSKELETAL: No cyanosis or clubbing. Strength 5/5 upper and lower extremities. ODETTE ROLOGIC: Cranial nerves intact. Normal sensation to light touch. PSYCH: Alert and oriented x3. Normal mood and affect. Normal judgment and insight. Normal memory. LABORATORY DATA: White count 9.0, hematocrit 45.8, platelets 237. Sodium 140, potassium 4.5, chlor selene 110, bicarb 15, BUN 24, creatinine 1.0, glucose 131. Troponins negative. Chest x-ray is negati ve. EKG viewed by me. My personal interpretation is normal sinus rhythm, no ST changes. ASSESSMENT/PLAN: 1. A 17-second sinus pause with subsequent syncope. The patient already has his pacemaker placed marbin Pineda. He will be observed overnight with usual post pacemaker care. Anticipate discharge home tomorrow if remains stable. 2. Hypothyroidism. Will continue Synthroid and check a TSH. 3. Hyperlipidemia. Will continue his statin. CODE STATUS: Full. ADMISSION STATUS: 1. Will admit to observation. Anticipate discharge home tomorrow. 2. DVT prophylaxis. He is low risk, especially given observation status. /[id number]/MODL
[2016-10-17 04:20] LABS: % IMMATURE GRANULYOCYTES 0.3 % (0.0-1.1); ABSOLUTE IMMATURE GRANULOCYTES 0.03 10^3/uL (0.00-0.10); ADD DIFF? NO; ADD MORPH? NO; ADD SCAN? NO; ATYPICAL LYMPHOCYTE FLAG 0 (0-99); FRAGMENT RBC FLAG 0 (0-99); HEMATOCRIT 40.8 % (40.0-51.0); HEMOGLOBIN 14.1 g/dL (13.7-17.5); LEFT SHIFT FLG 0 (0-99); LIPEMIA HEMOLYSIS FLAG 90 (0-99); MEAN CELL HEMOGLOBIN 33.1 pg (27.9-34.1); MEAN CELL HEMOGLOBIN CONCENTR. 34.6 g/dL (32.4-36.7); MEAN CELL VOLUME 95.8 fL (81.5-99.8); MEAN PLATELET VOLUME 10.5 fL (8.7-11.7); PLATELET CLUMPS FLAG 0 (0-99); PLATELET COUNT 192 10^3/uL (150-400); RED BLOOD CELL COUNT 4.26 10^6/uL (4.40-6.38); RED CELL DISTRIBUTION WIDTH 13.9 % (11.5-15.2)
[2016-10-17 04:43] LABS: ANION GAP 9 mEq/L (8-16); CALCIUM 8.9 mg/dL (8.5-10.4); CARBON DIOXIDE 21 mEq/l (22-31); CHLORIDE 111 mEq/L (97-110); GLOMERULAR FILTRATION RATE > 60; GLUCOSE 90 mg/dL (70-100); POTASSIUM 4.3 mEq/L (3.5-5.2); SODIUM 141 mEq/L (134-144)
--- NOTE | 2016-10-17 05:14 | GCON ---
[f rep st] CONSULTATION CARDIOLOGY CONSULTATION DATE OF CONSULTATION: 10/16/2016 REFERRING PHYSICIAN: Jose Recinos MD INDICATION FOR CONSULTATION: Syncope. HISTORY OF PRESENT ILLNESS: The patient is a pleasant 81-year-old gentleman, who is closely followed by Dr. Juanpablo Rader, of [facility], secondary to intermittent episodes of syncope and near syncope. He does have a [employer] implantable loop recorder in place and previously multiple syncopal episodes have not demonstrated any underlying cardiac etiology. He did have evidence of supraventricular tachycardia of 158 beats per minute lasting seconds. However, this was thought not to be the underlying cause of his syncope. Today he was in his usual state of health. He was on the toilet. He states he was not straining, when he developed some lower abdominal pain, and then was promptly followed by an episode of syncope without any further prodrome. He ended up vomiting multiple times. With this episode of syncope, his family brought him to [facility] for further evaluation. [employer] LINQ recorder demonstrated marked bradycardia and a 17 second pause with clear P-waves marching through, with no QRS. No previous episodes had been found on LINQ tracings consistent with this episode. At the time of my exam he is resting comfortably without complaint. Again, the patient denied any previous or prior symptoms of dizziness, lightheadedness, palpitations, shortness of breath, or chest pain prior to his syncopal episode. His only prodromal complaint was abdominal pain. PAST MEDICAL HISTORY: Notable for: 1. Allergic rhinitis. 2. BPH. 3. Hyperlipidemia. 4. Hypothyroidism. 5. SVT. 6. Bilateral cataracts. 7. Bunion surgery. PAST SURGICAL HISTORY: Includes: 1. Basal skin cancer removal. 2. Cataract surgery. 3. Tonsillectomy. MEDICATIONS: On admission include: 1. Multivitamins. 2. Lovastatin. 3. Levothyroxine. 4. Aspirin 81 mg daily. ALLERGIES: To medications: None. SOCIAL HISTORY: He has 4 children. He occasionally drinks alcohol. He is a former smoker. He does not use marijuana. FAMILY HISTORY: Noncontributory. PHYSICAL EXAMINATION: VITAL SIGNS: Blood pressure 180/110, heart rate of 78, respiratory rate of 18, oxygen saturation 94% on room air, temperature 36.7. GENERAL: He is awake, alert, oriented, appropriate, in no apparent distress. There is no evidence of JVP or carotid bruits. CARDIAC: S1, S2. Regular rate and rhythm. No murmurs, rubs, or gallops. LUNGS: Clear to auscultation bilaterally. ABDOMEN: Soft, nontender, nondistended. No pulsatile mass or abdominal bruit. He has no evidence of cyanosis, clubbing, or edema. DATA: White blood cell count of 9, hemoglobin of 15.6, hematocrit 45.8, platelets 237. Sodium 140, potassium 4.5, chloride 110, bicarb 15, BUN 24, creatinine 1, troponin less than 0.012. EKG demonstrates sinus rhythm at 76 beats per minute, with normal NC interval and QRS duration, as well as QT intervals. Normal axis. IMPRESSION: 1. Syncope. 2. Complete heart block, with 17 second pause, with junctional escape beats. I have reviewed with the patient, as well as with his and daughter who were in the room with him, regarding the findings on his implantable loop recorder from today. He did have a syncopal episode that was due to his 17- second pause. I have recommended he undergo permanent pacemaker implantation this afternoon. I have reviewed these tracings with Dr. Jad Pineda. I have contacted his Primary [employer] Optic Cable Splicer, Dr. Juanpablo Rader. I have discussed the risks and benefits of procedure with the patient. He is agreeable to pursue. PLAN: We will proceed with pacemaker implantation with Dr. Pineda this afternoon. 45 minutes spent coordinating care /[id number]/MODL MTDD
[2016-10-17] MEDS ORDERED: LEVOTHYROXINE 75 MCG TAB PO SCH (06:00)
[2016-10-17 07:00] VITALS: BP 123/80; PULSE 75; TEMP 99.3; O2SAT 91
[2016-10-17] MEDS ORDERED: MULTIVITAMINS 1 EACH TAB PO SCH (09:00)
--- NOTE | 2016-10-17 09:16 | CPEKG ---
Heart Rate: 83 RR Interval: 723 P-R Interval: 168 QRSD Interval: 94 QT Interval: 356 QTC Interval: 419 P Blackwell: 32 QRS Blackwell: 24 T Wave Blackwell: 23 EKG Severity - NORMAL ECG - EKG Impression: SINUS RHYTHM Electronically Signed By: Jad Pineda 17-Oct-2016 10:53:15
--- NOTE | 2016-10-17 10:31 | PDCARPN ---
Cardiology Progress Note Assessment/Plan: Assessment: 1. Syncope 2. CHB with 17 second pause associated with Syncope 3. SP Dual chamber pacemaker 10/16/16 Plan: -stable for discharge home -continue current meds -follow up wound and device check scheduled for next week 10/17/16 10:31 Subjective: Mr. Garibay is feeling well this AM. No syncope. Pacer implant yesterday after an episode of syncope at home with CHB and 17 second pause. dual chamber pacer without complication. DDD 60-130. CXR today and device check demonstrate no pneumothorax and normal device function. Stable for discharge home. Reviewed/Discussed With: family Time Spent With Patient: 20 minutes Objective: Vital Signs (8 Hrs) Temp Pulse Resp BP Pulse Ox 10/17/16 06:59 37.4 C 75 18 123/80 H 91 L 10/17/16 04:19 36.6 C 92 18 144/85 H 94 Intake/Output (24 Hrs) 10/16/16 10/17/16 10/18/16 05:59 05:59 05:59 Intake Total 1000 Balance 1000 Intake: IV Infused (ml) 1000 Other: Weight 77.111 kg Intake Quantity Yes Sufficient Number of Voids Toilet 3 Result Diagrams: 10/17/16 03:25 10/17/16 03:25 ICD10 Worksheet Patient Problems: Problems Problem Status Onset Syncope Acute Fever Acute Syncope Acute
[2016-10-17] MEDS ORDERED: PRAVASTATIN SODIUM 20 MG TAB PO SCH (18:00)
--- NOTE | 2016-10-17 23:08 | GDS ---
[f rep st] DISCHARGE SUMMARY DISCHARGE DIAGNOSES: 1. Syncope with complete heart block. 2. Dual-chamber pacemaker implant. 3. Supraventricular tachycardia. BRIEF HISTORY: This is a 81-year-old man with a long history of vasovagal syncope. He did have a LINQ court monitor implanted last year. He has had asymptomatic SVT with activity. There was one prior vasovagal episode in ura. On October 16, he had syncope while he was on the toilet. He was brought to the ER and his LINQ monitor was interrogated, which demonstrated complete heart block with a 17-second pause. HOSPITAL COURSE: Dr. Pineda implanted a [employer] dual chamber pacemaker without complications. The patient did well overnight. No bleeding at the pacemaker site. Pacemaker interrogation on the day of discharge demonstrates normal function with P waves at 4 mV, capture threshold in the atrium 0.5 V at 0.5 milliseconds, and impedance of 510 ohms. R-wave sensing is at 9.6 mV, capture 0.5 V at 0.5 milliseconds, and impedance is 630 ohms. The pacemaker is set in the DDD mode at a base rate of 60 beats per minute.He has not had any chest pain, shortness of breath or lightheadedness. PHYSICAL EXAMINATION: VITAL SIGNS: Blood pressure is 123/80, pulse 75, respirations 18, temperature 37.4, O2 saturation on room air 91%. GENERAL: He is alert and oriented, sitting up in his bed in no acute distress. CARDIAC: Regular rate and rhythm without a murmur, rub, or gallop. LUNGS: Clear to auscultation. Pacemaker site has a gauze dressing with op site over. There was no blood on the gauze. There is mild swelling at the pacemaker pocket site. EXTREMITIES: Warm. No discoloration. No lower extremity edema. DIAGNOSTIC STUDIES: Chest x-ray on 10/17 demonstrates no evidence of CHF, and no pneumothorax, with stable lead placement. LABORATORY DATA: WBC 10.16, hemoglobin 14.1, hematocrit 40.8, platelets 192. Sodium is 141, potassium 4.3, chloride 111, bicarb 21, BUN 16, creatinine is 1.0 , glucose is 90, TSH is 2.6, calcium is 8.9. DISCHARGE INSTRUCTIONS: Post pacemaker implant activity restrictions were reviewed with patient. Home monitoring and pacemaker followup were also reviewed with patient. He was given a printed information sheet on post implant restrictions. FOLLOWUP: He has a followup scheduled at [facility] for a pacemaker check on October 25, at 1:30, and to follow up with Dr. Pineda on November 15. /[id number]/MODL MTDD
== END 2016-10-17 11:05 | disposition home or self-care (01) ==
LOC: EDUNIT# → INTOOBSV 15:55 → F2W 19:37
PROVIDERS: ADMIT Internal Medicine; ATTEND Internal Medicine Cardiovascular Disease
PROC: 0JPT02Z Removal of Monitoring Device from Trunk Subcutaneous Tissue and Fascia, Open Approach (ICD-10-PCS; principal; 2016-10-16)
PROC: 0JH604Z Insertion of Pacemaker, Single Chamber into Chest Subcutaneous Tissue and Fascia, Open Approach (ICD-10-PCS; principal; 2016-10-16)
PROC: B5171ZZ Fluoroscopy of Left Subclavian Vein using Low Osmolar Contrast (ICD-10-PCS; principal; 2016-10-16)
PROC: 02HK3JZ Insertion of Pacemaker Lead into Right Ventricle, Percutaneous Approach (ICD-10-PCS; principal; 2016-10-16)
PROC: 02H63JZ Insertion of Pacemaker Lead into Right Atrium, Percutaneous Approach (ICD-10-PCS; principal; 2016-10-16)
DX: R55 Syncope and collapse (principal); I44.2 Atrioventricular block, complete; R11.2 Nausea with vomiting, unspecified; R19.7 Diarrhea, unspecified; E78.5 Hyperlipidemia, unspecified; E03.9 Hypothyroidism, unspecified; Z95.818 Presence of other cardiac implants and grafts; N40.0 Benign prostatic hyperplasia without lower urinary tract symptoms; J30.9 Allergic rhinitis, unspecified; H26.9 Unspecified cataract; Z85.828 Personal history of other malignant neoplasm of skin
CPT/HCPCS: 33208; 33284; 71010; 71020; 93005; 97165; 99285; C1785; C1898; G8987; G8988; G8989; J0690; J2250; J3010; Q9967

== ENCOUNTER 2018-05-09 20:10 | Inpatient (IN) | payer MEDICARE, OTHER ==
[2018-05-09] MEDS ORDERED: NS 1,000 ML IV ONE ×2 (20:16→20:39)
--- NOTE | 2018-05-09 20:20 | EDPHY ---
H & P Time Seen by Provider: 05/09/18 20:16 HPI/ROS: HPI CHIEF COMPLAINT: Syncope and vomiting. HISTORY OF PRESENT ILLNESS: 83-year-old male presents emergency room by EMS after he had a syncopal episode on the couch at home. Patient states he had a rather large dinner with chicken and green beans, he became nauseous felt his stomach being bloated and then vomited multiple times this caused him to have a syncopal episode. He arrives to the emergency room by EMS vomit all over him, complains of nausea he denies any chest pain or shortness of breath he denies any abdominal pain but does complain of abdominal fullness and ongoing nausea. He states he has a long history of syncope with vasovagal syncope. Past Medical History: History of is vagal syncope, hypertension, hyperlipidemia , SVT, complete heart block. Pacemaker Past Surgical History: Left chest pacemaker Social History: Denies drugs alcohol tobacco. Family History: Noncontributory ROS REVIEW OF SYSTEMS: 10 Systems were reviewed and negative with the exception of the elements mentioned in the history of present illness. Exam Constitutional elderly, nontoxic triage nursing summary reviewed, vital signs reviewed, awake/alert. Signs stable Eyes normal conjunctivae and sclera, EOMI, PERRLA. HENT normal inspection, atraumatic, moist mucus membranes, no epistaxis, neck supple/ no meningismus, no raccoon eyes. Respiratory clear to auscultation bilaterally, normal breath sounds, no respiratory distress, no wheezing. Cardiovascular rate normal, regular rhythm, no murmur, no edema, distal pulses normal. Gastrointestinal soft, non-tender, no rebound, no guarding, normal bowel sounds, no distension, no pulsatile mass. Genitourinary no CVA tenderness. Musculoskeletal no midline vertebral tenderness, full range of motion, no calf swelling, no tenderness of extremities, no meningismus, good pulses, neurovascularly intact. Skin pink, warm, & dry, no rash, skin atraumatic. Neurologic awake, alert and oriented x 3, AAOx3, moves all 4 extremities equally, motor intact, sensory intact, CN II-XII intact, normal cerebellar, normal vision, normal speech. Psychiatric normal mood/affect. Heme/Lymph/Immune no lymphadenopathy. Differential Diagnosis: Differential diagnosis includes but is not limited to and in no particular order: Vasovagal syncope, orthostatic syncope, dehydration , cardiac arrhythmia, ACS, Bowel obstruction, appendicitis, gallbladder disease , diverticulitis, colitis, enteritis, perforated viscus, gastritis, GERD, esophagitis, urinary tract infection, pyelonephritis, kidney stones Medical Decision Making: Plan for this patient IV establishment with fluid bolus, IV Zofran nausea, basic blood work, electrolytes, chest x-ray, EKG, troponin, cardiac monitoring. And re-evaluate. Re-evaluation: EKG interpretation by me on record in [facility] system. Impression time of EKG 2016, sinus rhythm rate of 77 no signs of acute ischemia there is T-wave flattening V1, V2 V3. No ST elevation. When I compare this patient's EKG to his old EKG dated 10/17/2016 very similar morphology. 2217: Patient re-evaluated this time resting comfortably no acute distress. He has received 2 L of fluid here. At 1 point he did have an episode of hypotension with bradycardia concerning for vasovagal syncope Additionally the patient has a pacemaker. Will need to interrogate the pacemaker while admitted to the hospital. I have admitted the patient to telemetry monitoring with the care of Dr. Allen, for vomiting/ dehydration/syncope. A believe his cause of syncope is vasovagal. His abdomen is soft nontender. His EKG is nonischemic without any signs of cardiac arrhythmia. His lab work is reassuring No pulsatile mass or bruit on abdominal exam. Patient doing better after fluids. Plan for hospital admission overnight for IV hydration, cardiac telemetry monitoring. Patient and family agree with this. Additionally there was a hemolyzed chemistry reported the very high potassium. This was repeated at normalized. Source: Patient, EMS - Personal History Tetanus Vaccine Date: 2011 - Medical/Surgical History Hx Asthma: No Hx Chronic Respiratory Disease: No Hx Diabetes: No Hx Cardiac Disease: No Hx Renal Disease: No Hx Cirrhosis: No Hx Alcoholism: No Hx HIV/AIDS: No Hx Splenectomy or Spleen Trauma: No Other PMH: tonsillectomy. R wrist surgery. hypothyroidism. elevated cholesterol. syncope - Social History Smoking Status: Former smoker Constitutional: Initial Vital Signs Temperature (C) 36.7 C 05/09/18 20:15 Heart Rate 83 05/09/18 20:15 Respiratory Rate 18 05/09/18 20:15 Blood Pressure 124/73 H 05/09/18 20:15 O2 Sat (%) 93 05/09/18 20:15 O2 Delivery Mode Room Air O2 (L/minute) 2 Allergies/Adverse Reactions: No Known Allergies Allergy (Verified 05/09/18 20:20) Home Medications: Medication Instructions Recorded Aspirin [Aspirin 81mg (*)] 81 mg PO HS 10/15/13 Levothyroxine [Synthroid 75 mcg 75 mcg PO DAILY06 10/15/13 (*)] Lovastatin 20 mg PO DAILY18 10/15/13 Multivitamins [Multivitamin (*)] 1 each PO DAILY 10/16/13 Medical Decision Making - Data Points Laboratory Results: Laboratory Results 05/10/18 08:00 05/10/18 08:00 Microbiology Results: MICROBIOLOGY 05/10/18 02:50 Stool Gastrointestinal Tract Panel (PCR) - Final Norovirus Gi/Gii Medications Given: Acetaminophen (Tylenol) 650 mg PO Q4HRS PRN PRN Reason: Pain, Mild/Fever, Can Take PO Stop: 11/05/18 22:11 Last Admin: 05/10/18 21:47 Dose: 650 mg Aspirin (Aspirin) 81 mg PO HS [facility] Stop: 11/06/18 20:59 Last Admin: 05/10/18 21:48 Dose: 81 mg Enoxaparin Sodium (Lovenox) 40 mg SC DAILY [facility] Stop: 11/06/18 08:59 Last Admin: 05/11/18 09:42 Dose: 40 mg Levothyroxine Sodium (Synthroid) 75 mcg PO DAILY06 [facility] Stop: 11/06/18 05:59 Last Admin: 05/11/18 04:07 Dose: 75 mcg Multivitamins (Tab-A-Elsa) 1 each PO DAILY [facility] Stop: 11/06/18 08:59 Last Admin: 05/11/18 09:42 Dose: 1 each Pravastatin Sodium (Pravachol) 20 mg PO HS [facility] Stop: 11/06/18 20:59 Last Admin: 05/10/18 21:47 Dose: 20 mg Discontinued Medications Sodium Chloride (Ns) 1,000 mls @ 0 mls/hr IV EDNOW ONE; Wide Open PRN Reason: Protocol Stop: 05/09/18 20:17 Last Admin: 05/09/18 20:39 Dose: 1,000 mls Sodium Chloride (Ns) 1,000 mls @ 0 mls/hr IV EDNOW ONE; Wide Open PRN Reason: Protocol Stop: 05/09/18 20:40 Last Admin: 05/09/18 20:40 Dose: 1,000 mls Sodium Chloride (Ns) 500 mls @ 0 mls/hr IV ONCE ONE PRN Reason: Wide Open Stop: 05/10/18 00:00 Last Admin: 05/10/18 00:37 Dose: 500 mls Sodium Chloride (Ns) 1,000 mls @ 75 mls/hr IV CONT [facility] Stop: 11/06/18 11:59 Last Admin: 05/10/18 12:04 Dose: 1,000 mls Ondansetron HCl (Zofran) 4 mg IVP EDNOW ONE Stop: 05/09/18 20:31 Last Admin: 05/09/18 20:57 Dose: 4 mg Point of Care Test Results: Chemistry 05/09/18 05/09/18 05/09/18 23:39 21:03 20:43 POC Glucose 151 mg/dL H mg/dL (70-100) POC Troponin I 0.01 ng/mL ng/mL TNP (0.00-0.08) 05/09/18 20:29 POC Glucose POC Troponin I TNP Departure - Departure Disposition: [facility] Inpatient Acute Clinical Impression: Dehydration Syncope Qualifiers: Syncope type: vasovagal syncope Qualified Code(s): R55 - Syncope and collapse Condition: Fair
[2018-05-09] MEDS ORDERED: ONDANSETRON 4 MG/2 ML VIAL IVP ONE (20:30)
[2018-05-09 20:54] LABS: PLATELET COUNT 250 10^3/uL (150-400)
[2018-05-09 21:07] LABS: INR 0.92 (0.83-1.16); PROTIME(PATIENT) 12.6 SEC (12.0-15.0)
[2018-05-09] MEDS ORDERED: ONDANSETRON DISINTEGRATING 4 MG TAB PO PRN (22:12)
[2018-05-09] MEDS ORDERED: ONDANSETRON 4 MG/2 ML VIAL IVP PRN (22:12)
--- NOTE | 2018-05-09 22:55 | PDGENHP ---
History and Physical - Chief Complaint Syncope - History of Present Illness 83 yo M w/ hx of CHB s/p PPM, vasovagal syncope, HLD, and hypothyroid presents after syncopal event. The patient was feeling some abdominal discomfort this evening after dinner. He noted some pain and nausea. The next thing he remembers EMS personnel were around him assessing the situation. His , who witnessed the event, states he slumped backwards on the couch and was unresponsive for several minutes. He continues to feel fatigued but otherwise he is at baseline mental status. In the ED initially his work-up was unremarkable. He did have an episode of hypotension in the ED that was responsive to fluids. He is being admitted for observation. Case discussed with ED physician Dr. Madsen; records reviewed and summarized above. History Information - Allergies/Home Medication List Allergies/Adverse Reactions: No Known Allergies Allergy (Verified 05/09/18 20:20) Home Medications: Aspirin [Aspirin 81mg (*)] 81 mg PO HS 10/15/13 [Last Taken 05/08/18] Levothyroxine [Synthroid 75 mcg (*)] 75 mcg PO DAILY06 10/15/13 [Last Taken ] Lovastatin 20 mg PO DAILY18 10/15/13 [Last Taken 05/09/18] Multivitamins [Multivitamin (*)] 1 each PO DAILY 10/16/13 [Last Taken 05/09/18] I have personally reviewed and updated: family history, medical history - Past Medical History hyperlipidemia Additional medical history: Hypothyroid. Complete heart block. Vasovagal syncope - Surgical History Reports: pacemaker/AICD - Family History Positive for: diabetes type II, CAD Additional family history: COPD. No family hx of syncope - Social History Smoking Status: Former smoker Review of Systems Review of Systems: ROS: 10pt was reviewed & negative except for what was stated in HPI & below Physical Exam Physical Exam: Temp Pulse Resp BP Pulse Ox 36.7 C 80 16 135/67 H 98 05/09/18 20:15 05/09/18 21:00 05/09/18 21:00 05/09/18 21:00 05/09/18 21:00 Constitutional: no apparent distress, not in pain Eyes: PERRL, EOMI Ears, Nose, Mouth, Throat: moist mucous membranes, no oral mucosal ulcers Cardiovascular: regular rate and rhythym, no murmur, rub, or gallop Respiratory: no respiratory distress, clear to auscultation Gastrointestinal: normoactive bowel sounds, soft, non-tender abdomen Skin: warm, normal color Musculoskeletal: full muscle strength, no muscle tenderness Neurologic: AAOx3, CN II-XII Intact Psychiatric: interacting appropriately, not anxious Lab Data & Imaging Review 05/09/18 20:38 05/09/18 21:40 WBC 11.90 10^3/uL (3.80-9.50) H 05/09/18 20:38 RBC 5.03 10^6/uL (4.40-6.38) 05/09/18 20:38 Hgb 16.0 g/dL (13.7-17.5) 05/09/18 20:38 Hct 48.2 % (40.0-51.0) 05/09/18 20:38 MCV 95.8 fL (81.5-99.8) 05/09/18 20:38 MCH 31.8 pg (27.9-34.1) 05/09/18 20:38 MCHC 33.2 g/dL (32.4-36.7) 05/09/18 20:38 RDW 14.2 % (11.5-15.2) 05/09/18 20:38 Plt Count 250 10^3/uL (150-400) 05/09/18 20:38 MPV 10.2 fL (8.7-11.7) 05/09/18 20:38 Neut % (Auto) 75.3 % (39.3-74.2) H 05/09/18 20:38 Lymph % (Auto) 17.0 % (15.0-45.0) 05/09/18 20:38 Clarke % (Auto) 4.7 % (4.5-13.0) 05/09/18 20:38 Eos % (Auto) 2.4 % (0.6-7.6) 05/09/18 20:38 Baso % (Auto) 0.2 % (0.3-1.7) L 05/09/18 20:38 Nucleat RBC Rel Count 0.0 % (0.0-0.2) 05/09/18 20:38 Absolute Neuts (auto) 8.97 10^3/uL (1.70-6.50) H 05/09/18 20:38 Absolute Lymphs (auto) 2.02 10^3/uL (1.00-3.00) 05/09/18 20:38 Absolute Monos (auto) 0.56 10^3/uL (0.30-0.80) 05/09/18 20:38 Absolute Eos (auto) 0.28 10^3/uL (0.03-0.40) 05/09/18 20:38 Absolute Basos (auto) 0.02 10^3/uL (0.02-0.10) 05/09/18 20:38 Absolute Nucleated RBC 0.00 10^3/uL (0-0.01) 05/09/18 20:38 Immature Gran % 0.4 % (0.0-1.1) 05/09/18 20:38 Immature Gran # 0.05 10^3/uL (0.00-0.10) 05/09/18 20:38 PT 12.6 SEC (12.0-15.0) 05/09/18 20:38 INR 0.92 (0.83-1.16) 05/09/18 20:38 APTT 26.3 SEC (23.0-38.0) 05/09/18 20:38 Sodium 139 mEq/L (135-145) 05/09/18 21:40 Potassium 4.4 mEq/L (3.5-5.2) 05/09/18 21:40 Chloride 110 mEq/L (97-110) 05/09/18 21:40 Carbon Dioxide 20 mEq/l (22-31) L 05/09/18 21:40 Anion Gap 9 mEq/L (6-14) 05/09/18 21:40 BUN 26 mg/dL (7-23) H 05/09/18 21:40 Creatinine 1.0 mg/dL (0.7-1.3) 05/09/18 21:40 Estimated GFR > 60 05/09/18 21:40 Glucose 108 mg/dL (70-100) H 05/09/18 21:40 Calcium 8.5 mg/dL (8.5-10.4) 05/09/18 21:40 Magnesium 2.1 mg/dL (1.6-2.3) 05/09/18 20:38 Total Bilirubin 1.3 mg/dL (0.1-1.4) 05/09/18 20:38 Conjugated Bilirubin 0.9 mg/dL (0.0-0.5) H 05/09/18 20:38 Unconjugated Bilirubin 0.4 mg/dL (0.0-1.1) 05/09/18 20:38 AST 49 IU/L (17-59) 05/09/18 20:38 ALT 8 IU/L (21-72) L 05/09/18 20:38 Alkaline Phosphatase 79 IU/L (38-126) 05/09/18 20:38 POC Troponin I 0.01 ng/mL (0.00-0.08) 05/09/18 21:03 NT-Pro-B Natriuret Pep 40 pg/mL (0-450) 05/09/18 20:38 Total Protein 7.4 g/dL (6.3-8.2) 05/09/18 20:38 Albumin 4.4 g/dL (3.5-5.0) 05/09/18 20:38 Lipase 129 IU/L (23-300) 05/09/18 20:38 Specimen Hemolysis 251 05/09/18 20:38 Imaging Review: Imaging Impressions Chest X-Ray 05/09/18 20:16 Impression: 1. Pacemaker, without pneumothorax. 2. Mild cardiomegaly, without pneumonia, pleural effusion, or congestive heart failure. Visualized and Interpreted EKG results: Yes EKG Interpretation: Positive for: normal sinsus rhythm Assessment & Plan Assessment: 83 yo M w/ hx of vasovagal syncope and complete heart block s/p PPM presents after syncopal event. Plan: 1. Syncope - Suspect vasovagal etiology noting it was preceded by GI discomfort. Cardiac etiologies are also possible, however, noting he has not had an episode of syncope since his pacemaker was implanted more than 1 year ago. - Admit for observation - Monitor on telemetry - Consider pacemaker interrogation in the morning if symptoms persist or concerning findings on telemetry monitoring 2. Complete heart block - S/p PPM 3. Hyperlipidemia - Continue statin 4. Hypothyroid - Continue LTX Diet - Regular Code - Full Ppx - LMWH Dispo - Admit under observation status
[2018-05-09] MEDS ORDERED: NS 500 ML IV ONE (23:59)
[2018-05-10] MEDS: ACETAMINOPHEN 325 MG TAB PO PRN ×4 (04:52→21:47)
[2018-05-10] MEDS: LEVOTHYROXINE 75 MCG TAB PO SCH (04:53)
[2018-05-10 08:32] LABS: PLATELET COUNT 207 10^3/uL (150-400)
[2018-05-10] MEDS: ENOXAPARIN 40 MG/0.4 ML SYR SC SCH (10:02)
[2018-05-10] MEDS: MULTIVITAMINS 1 EACH TAB PO SCH (10:02)
[2018-05-10] MEDS ORDERED: NS 1,000 ML IV SCH (12:00)
--- NOTE | 2018-05-10 15:34 | HOSPPROG ---
Hospitalist Progress Note Assessment/Plan: 83 year old male with pmh of complete heart block, status post [facility] pacer, here with NVD, and multiple syncopal episodes yesterday. Positive for norovirus. Plan: 1. Syncope - Likely orthostatic in setting of severe NVD and dehydration. I had his pacer interrogated which showed no arrythmias in the last 2 days. -continue monitor on tele -continue fluid resuscitation Norovirus- He continues to feel nauseated and not able to tolerate PO. -continue fluids -contact precautions -supportive care with antiemetics, antidiarrheals 2. Complete heart block - S/p PPM. had pacer interrogated today with no abnormalities in yesterday or today. -tele 3. Hyperlipidemia - Continue statin 4. Hypothyroid - Continue LTX Diet - Regular Code - Full Ppx - LMWH Dispo - Subjective: still very bloated. Not able to tolerate PO. Objective: Vital Signs Temp Pulse Resp BP Pulse Ox 37.1 C 85 20 128/72 H 94 05/10/18 12:07 05/10/18 12:07 05/10/18 12:07 05/10/18 12:07 05/10/18 12:07 Microbiology 05/10/18 02:50 Gastrointestinal Tract Panel (PCR) - Final Stool Norovirus Gi/Gii Laboratory Results 05/10/18 08:00 05/10/18 08:00 05/09/18 05/10/18 05/11/18 05:59 05:59 05:59 Intake Total 2250 1500 Output Total 100 100 Balance 2150 1400 PT 12.6 SEC (12.0-15.0) 05/09/18 20:38 INR 0.92 (0.83-1.16) 05/09/18 20:38 - Physical Exam Constitutional: no apparent distress, appears nourished, not in pain Eyes: PERRL, anicteric sclera, EOMI Ears, Nose, Mouth, Throat: moist mucous membranes, hearing normal, ears appear normal, no oral mucosal ulcers Cardiovascular: regular rate and rhythym, no murmur, rub, or gallop Respiratory: no respiratory distress, no rales or rhonchi, clear to auscultation Gastrointestinal: normoactive bowel sounds, soft, non-tender abdomen, no palpable masses Genitourinary: no bladder fullness, no bladder tenderness, no renal bruits Skin: no rashes or abrasions, no fluctuance, no induration Musculoskeletal: full muscle strength, no muscle tenderness, normal joint ROM Neurologic: AAOx3, sensation intact bilaterally Psychiatric: interacting appropriately, not anxious, not encephalopathic, thought process linear Lymph, Heme, Immunologic: no cervical LAD, no supraclavicular LAD ICD10 Worksheet Patient Problems: Problems Problem Status Onset Dehydration Acute Syncope Acute Fever Acute Syncope Acute
--- NOTE | 2018-05-10 16:38 | ASMTCMCOM ---
CM Note CM Note Notes: Pt lives independently with and was admitted for syncope following N/V dehydration from norovirus. also hospitalized for norovirus here. Pt has pacer for history of heart block. PT is recommending home independent. CM to follow. DC Plan: Independent pending family support Date Signed: 05/10/2018 04:38 PM Electronically Signed By:Chantelle Aiken
[2018-05-10] MEDS ORDERED: ASPIRIN 81 MG CHEWABLE TAB PO SCH (21:00)
[2018-05-10] MEDS ORDERED: PRAVASTATIN SODIUM 20 MG TAB PO SCH (21:00)
[2018-05-11] MEDS: LEVOTHYROXINE 75 MCG TAB PO SCH (04:07)
[2018-05-11 04:31] LABS: PLATELET COUNT 183 10^3/uL (150-400)
[2018-05-11] MEDS: ENOXAPARIN 40 MG/0.4 ML SYR SC SCH (09:42)
[2018-05-11] MEDS: MULTIVITAMINS 1 EACH TAB PO SCH (09:42)
--- NOTE | 2018-05-11 11:29 | PDMN ---
Medical Necessity Medical necessity: [facility] [place] [facility] Gastroenteritis, A-2days: 83 yo presents w/ syncope suspected vasovagal etiology 2nd GI discomfort. Initially admit for OBS for workup, tele monitoring. Shortly after admit pt developed repeat syncope w/ diarrhea. IVF started, pt norovirus +. Pt requires additional MN for nausea, unable to troy PO after OBS stay. IVF to cont overnight, supportive care w/ antiemetics and antidiarrheals. Hx pacer for complete heart block, hypothyroid , vasovagal syncope, HLD. Change to IP status 05/10/18@204 per MD order.
[2018-05-11 11:34] VITALS: BP 133/83
--- NOTE | 2018-05-11 12:20 | PDDCSUM ---
Discharge Summary Discharge Summary: Discharge diagnosis Orthostatic hypotension Syncope Acute kidney injury Hyperlipidemia Hypothyroid Dehydration Patient is an 83-year-old male with past medical history of complete heart block status post pacemaker placement, vasovagal syncope, hypothyroid, hyperlipidemia who presented after having a syncopal episode the day of admission. He also was complaining of severe, violent nausea and vomiting, with diarrhea starting that day. A gastrointestinal panel tested positive for norovirus. His pacemaker was interrogated by Cardiology who found no arrhythmias or acute events in the 2 days up to his admission or the day of his admission. He did have in a KI and appeared severely dehydrated secondary to nausea vomiting and diarrhea. IV fluids were given and his acute kidney injury resolved. It was thought that his syncope was secondary to orthostatic hypotension in the setting of severe dehydration from norovirus. He was discharged home to follow up with his primary care care provider Discharge disposition Home I spent over 30 min on the discharge of this patient
--- NOTE | 2018-05-11 13:34 | ASDISCHSUM ---
Discharge Information Plan Status:Home with No Needs Medically Cleared to Leave: Discharge Date: D/C Disposition:Home, Routine, Self-Care ADT D/C Disposition:Home, Routine, Self-Care Projected Discharge Date:05/11/2018 12:00 AM Transportation at D/C:Self Discharge Delay Reason: Follow-Up Date:05/11/2018 12:00 AM Discharge Slot: Final Diagnosis: Placement Information Patient Contact Information Contact Name:PATHEALY Relationship: Address:[address] City:[place] Alternate Phone: State/Zip Code:[place] [address] Email: Financial Information Financial Class:Medicare Primary Plan Desc:MEDICARE OUTPATIENT Primary Plan Number:[id number] Secondary Plan Desc: Secondary Plan Number: Assessment Information [facility] CM Progress Note CM Note CM Note Notes: Pt lives independently with and was admitted for syncope following N/V dehydration from norovirus. also hospitalized for norovirus here. Pt has pacer for history of heart block. PT is recommending home independent. CM to follow. DC Plan: Independent pending family support Date Signed: 05/10/2018 04:38 PM Electronically Signed By:Chantelle Aiken Case Management Discharge Plan Note Case Management Discharge Discharge Order Complete? Answers: Yes Patient to Obtain Answers: via Family Medications Transportation Arranged Answers: Family/Friends Discharge Comments Notes: Pt is being discharged independently. No CM needs identified. Date Signed: 05/11/2018 01:34 PM Electronically Signed By:ZACARIAS De Dios Intervention Information
--- NOTE | 2018-05-11 19:52 | CPEKG ---
Test Reason : OPEN Blood Pressure : / mmHG Vent. Rate : 077 BPM Atrial Rate : 077 BPM P-R Int : 153 ms QRS Dur : 093 ms QT Int : 347 ms P-R-T Axes : 031 030 045 degrees QTc Int : 393 ms Sinus rhythm Borderline T wave abnormalities Confirmed by Elfego Meng ([id number]) on 05/11/2018 7:51:32 PM Referred By: Elfego Meng Confirmed By:Elfego Meng
== END 2018-05-11 14:36 | disposition home or self-care (01) | DRG 392 ==
LOC: EDUNIT# → F2W 23:25 → OBSVTOIN 05-10 20:45
PROVIDERS: ADMIT Student in an Organized Health Care Education/Training Program; ATTEND Internal Medicine
DX: A08.11 Acute gastroenteropathy due to Norwalk agent (principal); I95.1 Orthostatic hypotension; E86.0 Dehydration; N17.9 Acute kidney failure, unspecified; I10 Essential (primary) hypertension; E78.5 Hyperlipidemia, unspecified; Z95.0 Presence of cardiac pacemaker; E03.9 Hypothyroidism, unspecified; Z87.891 Personal history of nicotine dependence; I44.2 Atrioventricular block, complete; I47.1 Supraventricular tachycardia
CPT/HCPCS: 84484-ER; 96374; 97161-GP; 97165-GO; G0378; J1650; J2405

== ENCOUNTER 2018-05-11 20:50 | Observation (INO) | payer OTHER ==
[2018-05-11] MEDS ORDERED: NS 1,000 ML IV ONE (21:42)
[2018-05-11] MEDS ORDERED: FAMOTIDINE 20 MG/NACL 50 ML IV ONE (21:42)
[2018-05-11] MEDS ORDERED: ONDANSETRON 4 MG/2 ML VIAL IVP ONE (21:42)
--- NOTE | 2018-05-11 22:09 | EDPHY ---
H & P Time Seen by Provider: 05/11/18 21:14 HPI/ROS: HPI Vomiting, diarrhea. 83-year-old male on foot. He and his for both recently admitted to the hospital for vomiting and diarrhea and dehydration secondary to norovirus. This patient was just discharged earlier this afternoon. He was feeling better. He reports that he was up visiting his who is still in the hospital for the symptoms. He reports that he started feeling abdominal discomfort and this was followed by 2-3 episodes of nonbilious, nonbloody vomiting and 2-3 episodes of volume as watery diarrhea. No bloody or melenic stool. He is now feeling better. ROS: Constitutional: No fever, no chills. No weakness. Respiratory: No cough. No shortness of breath. Cardiac: No chest pain, no palpitations. Gastrointestinal: As above. Neurological: No headache. No focal weakness or altered sensation. Past medical history: As above. Tonsillectomy, right wrist surgery, hypothyroidism, hyperlipidemia, vasovagal syncope thought to be related to dehydration although he does have a pacemaker. Social history: He lives with his at home. His daughter is currently in the room with him. Nonsmoker. No alcohol. Physical Exam: General Appearance: Alert, no distress. This patient is responding to questions appropriately and in full sentences. This patient appears well- hydrated and well-nourished. Eyes: Pupils equal and round no pallor or injection. No lid edema, erythema or injection. Gastrointestinal: Abdomen is soft and nontender, no masses, bowel sounds are active. No focal tenderness at McBurney's point. No Guzmán sign. Neurological: Motor sensory function is grossly intact. Cranial nerves are normal. Gait is normal. Skin: Warm and dry, no rashes. Musculoskeletal: Neck is supple and nontender. Extremities are symmetrical. All joints range without pain or impingement. Psychiatric: No agitation. No depression. Database: EKG: Imaging: Procedures: Emergency department course: Triage vital signs reviewed. He is hypertensive. Temperature is 37.4 degrees. Vital signs are otherwise unremarkable. He has a benign abdomen. An IV was placed. He was given 4 mg of IV Zofran and 20 mg of IV Pepcid. He will be given 1-2 L of IV normal saline over the next 1-2 hours. 10:35 p.m., the patient was re-evaluated, he had another episode of volume as watery diarrhea. Vital signs reviewed. monitoring coordinator currently shows a sinus rhythm with ventricular rate 84. Blood pressure is 104/92. He will be started on another L of IV normal saline with rate at 250 cc/hour. He declines narcotic medication to slow his gut motility. I discussed the results of his electrolyte panel with him and his daughter who is present in the room. I explained we would admit him to the hospitalist service for further IV hydration and observation overnight. They endorse. Hospitalist paged. 10:50 p.m., spoke with Dr. Allen, hospitalist on-call. Case discussed with him in detail. He is very familiar with this patient. He accepts the patient for admission. The patient was admitted in stable condition to the hospitalist service. Differential Diagnosis: The differential diagnosis on this patient includes but is not limited to food borne illness, recent diagnosis of gastroenteritis secondary to norovirus. This represents a partial list of diagnoses considered. These considerations are based on history, physical exam, past history, reassessment and diagnostic testing. Smoking Status: Former smoker Constitutional: Initial Vital Signs Temperature (C) 37.4 C 05/11/18 20:54 Heart Rate 84 05/11/18 20:54 Respiratory Rate 16 05/11/18 20:54 Blood Pressure 176/103 H 05/11/18 20:54 O2 Sat (%) 94 05/11/18 20:54 O2 Delivery Mode Room Air Allergies/Adverse Reactions: No Known Allergies Allergy (Verified 05/11/18 20:57) Home Medications: Medication Instructions Recorded Aspirin [Aspirin 81mg (*)] 81 mg PO HS 10/15/13 Levothyroxine [Synthroid 75 mcg 75 mcg PO DAILY06 10/15/13 (*)] Lovastatin 20 mg PO DAILY18 10/15/13 Multivitamins [Multivitamin (*)] 1 each PO DAILY 10/16/13 Medical Decision Making - Data Points Laboratory Results: Laboratory Results 05/11/18 22:10 05/11/18 22:10 Sodium 136 mEq/L mEq/L (135-145) Potassium 4.0 mEq/L mEq/L (3.5-5.2) Chloride 107 mEq/L mEq/L (97-110) Carbon Dioxide 20 mEq/l L mEq/l (22-31) Anion Gap 9 mEq/L mEq/L (6-14) BUN 18 mg/dL mg/dL (7-23) Creatinine 0.7 mg/dL mg/dL (0.7-1.3) Estimated GFR > 60 Glucose 100 mg/dL mg/dL (70-100) Calcium 8.3 mg/dL L mg/dL (8.5-10.4) Medications Given: Discontinued Medications Sodium Chloride (Ns) 1,000 mls @ 0 mls/hr IV EDNOW ONE; Wide Open PRN Reason: Protocol Stop: 05/11/18 21:43 Last Admin: 05/11/18 21:57 Dose: 1,000 mls Famotidine/Sodium Chloride (Pepcid 20 Mg (Premix)) 50 mls @ 200 mls/hr IV EDNOW ONE Stop: 05/11/18 21:56 Last Admin: 05/11/18 22:01 Dose: 50 mls Ondansetron HCl (Zofran) 4 mg IVP EDNOW ONE Stop: 05/11/18 21:43 Last Admin: 05/11/18 22:00 Dose: 4 mg Departure - Departure Disposition: [facility] Inpatient Acute Clinical Impression: Vomiting and diarrhea Referrals: NONE *PRIMARY CARE P,. [Primary Care Provider] - As per Instructions
[2018-05-11] MEDS ORDERED: ACETAMINOPHEN 325 MG TAB PO PRN (22:54)
[2018-05-11] MEDS ORDERED: ONDANSETRON DISINTEGRATING 4 MG TAB PO PRN (22:54)
[2018-05-11] MEDS ORDERED: ONDANSETRON 4 MG/2 ML VIAL IVP PRN (22:54)
[2018-05-11] MEDS ORDERED: PROMETHAZINE HCL 25 MG/ML INJ IVP PRN (22:54)
[2018-05-12] MEDS: NS 1,000 ML IV SCH ×2 (01:18→09:34)
--- NOTE | 2018-05-12 01:34 | PDGENHP ---
History and Physical - Chief Complaint Nausea, vomiting - History of Present Illness 83 yo M discharged earlier today after supportive treatment for norovirus returns to ED with ongoing symptoms. The patient was discharged this afternoon after supportive treatment for norovirus and related syncope. He does have a pacemaker in place, this was interrogated and working well. He was discharged around 2 PM and went to visit his who remains hospitalized for similar symptoms. While he was visiting his he developed recurring vomiting and diarrhea. He tells me he had at least 5 episodes and does not feel he is able to go home. He is being admitted for continued observation. Case discussed with ED physician Dr. Marin; records reviewed and summarized above. History Information - Allergies/Home Medication List Allergies/Adverse Reactions: No Known Allergies Allergy (Verified 05/11/18 20:57) Home Medications: Aspirin [Aspirin 81mg (*)] 81 mg PO HS 10/15/13 [Last Taken 05/08/18] Levothyroxine [Synthroid 75 mcg (*)] 75 mcg PO DAILY06 10/15/13 [Last Taken ] Lovastatin 20 mg PO DAILY18 10/15/13 [Last Taken 05/09/18] Multivitamins [Multivitamin (*)] 1 each PO DAILY 10/16/13 [Last Taken 05/09/18] I have personally reviewed and updated: family history, medical history - Past Medical History hyperlipidemia Additional medical history: Hypothyroid. Complete heart block. Vasovagal syncope - Surgical History Reports: pacemaker/AICD - Family History Positive for: diabetes type II, CAD Additional family history: COPD. No family hx of syncope - Social History Smoking Status: Former smoker Review of Systems Review of Systems: ROS: 10pt was reviewed & negative except for what was stated in HPI & below Physical Exam Physical Exam: Temp Pulse Resp BP Pulse Ox 36.8 C 87 16 153/90 H 95 05/12/18 00:39 05/12/18 00:39 05/12/18 00:39 05/12/18 00:39 05/12/18 00:39 Constitutional: no apparent distress, not in pain Eyes: PERRL, EOMI Ears, Nose, Mouth, Throat: moist mucous membranes, no oral mucosal ulcers Cardiovascular: regular rate and rhythym, no murmur, rub, or gallop Respiratory: no respiratory distress, clear to auscultation Gastrointestinal: normoactive bowel sounds, soft, non-tender abdomen Skin: warm, normal color Musculoskeletal: full muscle strength, no muscle tenderness Neurologic: AAOx3, CN II-XII Intact Psychiatric: interacting appropriately, not anxious Lab Data & Imaging Review 05/11/18 22:10 Sodium 136 mEq/L (135-145) 05/11/18 22:10 Potassium 4.0 mEq/L (3.5-5.2) 05/11/18 22:10 Chloride 107 mEq/L (97-110) 05/11/18 22:10 Carbon Dioxide 20 mEq/l (22-31) L 05/11/18 22:10 Anion Gap 9 mEq/L (6-14) 05/11/18 22:10 BUN 18 mg/dL (7-23) 05/11/18 22:10 Creatinine 0.7 mg/dL (0.7-1.3) 05/11/18 22:10 Estimated GFR > 60 05/11/18 22:10 Glucose 100 mg/dL (70-100) 05/11/18 22:10 Calcium 8.3 mg/dL (8.5-10.4) L 05/11/18 22:10 Assessment & Plan Assessment: 83 yo M readmitted with ongoing gastroenteritis symptoms due to norovirus. Plan: 1. Norovirus infection - Continued to have symptoms limiting his ability to complete ADLs shortly after being discharged. - Admit for observation - mIVF, clear liquid diet, ADAT - Anti-emetics PRN 2. Complete heart block - S/p PPM, this was interrogated during last admission and functioning well. 3. HLD - Continue statin 4. Hypothyroid - Continue LTX Diet - Clears, mIVF, ADAT Code - Full PPx - LMWH Dispo - Admit under observation status
[2018-05-12 05:50] LABS: PLATELET COUNT 188 10^3/uL (150-400)
[2018-05-12] MEDS ORDERED: ENOXAPARIN 40 MG/0.4 ML SYR SC SCH (09:00)
[2018-05-12] MEDS ORDERED: hydrALAZINE 20 MG/ML VIAL IVP PRN (09:48)
[2018-05-12 16:52] VITALS: BP 153/93
--- NOTE | 2018-05-12 17:04 | ASMTCMCOM ---
CM Note CM Note Notes: Patient admitted with Norovirus and recently discharged with same. He is feeling much better at this time. Do not anticipate any CM needs. Confirmed with RN as well. CM available should needs arise. Plan: Likely Independent Date Signed: 05/12/2018 05:04 PM Electronically Signed By:Jailene Kearns RN
--- NOTE | 2018-05-12 17:39 | PDDCSUM ---
Discharge Summary Discharge Summary: Discharge diagnosis Norovirus Nausea vomiting Diarrhea Hypothyroid Hyperlipidemia Patient is an 83-year-old male was just discharged for nausea vomiting diarrhea and positive norovirus. His is also admitted on the 3rd floor and he went to visit her after his discharge. While visiting the patient developed an episode of diarrhea along with vomiting. He decided to go back to the ER to be readmitted. He was restarted on IV fluids and given antiemetics. He had no further episodes of nausea vomiting. His electrolytes and all labs were within normal limits. The following morning he was able to tolerate a regular diet and ate a tuna salad sandwich with no problems along with some apple crisp. He was discharged home to follow up with his primary care doctor in good condition. Disposition Home in good condition
== END 2018-05-12 18:59 | disposition home or self-care (01) ==
LOC: F3N 05-12 00:28
PROVIDERS: ADMIT Student in an Organized Health Care Education/Training Program; ATTEND Internal Medicine
DX: A08.11 Acute gastroenteropathy due to Norwalk agent (principal); I44.2 Atrioventricular block, complete; E86.9 Volume depletion, unspecified; E03.9 Hypothyroidism, unspecified; E78.5 Hyperlipidemia, unspecified; Z79.82 Long term (current) use of aspirin; Z87.891 Personal history of nicotine dependence; Z82.49 Family history of ischemic heart disease and other diseases of the circulatory system; Z95.0 Presence of cardiac pacemaker
CPT/HCPCS: 92610; 96372; 96374; 96375; 99285; G0378; G0379; J1650; J2405